=== PATIENT | female | born 1955 | race Caucasian/White ===

== ENCOUNTER → 2018-12-31 | Outpatient (CLI) | payer MEDICARE, BC | LOC: LL.CLIN 15:00 | PROVIDERS: ATTEND Nurse Practitioner | DX: J40 Bronchitis, not specified as acute or chronic (principal) | CPT/HCPCS: 99213 ==

== ENCOUNTER 2019-08-14 18:20 | Observation (INO) | payer MEDICARE, BC ==
[2019-08-14] MEDS ORDERED: GI Cocktail Oral Solution 30 ML PO ONE (18:27)
[2019-08-14] MEDS ORDERED: Nitroglycerin 0.4 MG Tab.SL SL PRN (18:39)
[2019-08-14 18:48] LABS: CHLORIDE,CL 102 mmol/L (98-107); SODIUM,NA 138 mmol/L (136-145)
[2019-08-14] MEDS ORDERED: Famotidine 20 MG/2 ML SDV IVPUSH ONE (18:55)
[2019-08-14] MEDS ORDERED: Pantoprazole 40 MG Vial IVPUSH ONE (18:56)
[2019-08-14] MEDS: Sodium Chloride 0.9% 10 ML Syringe FLUSH PRN ×2 (19:08→21:15)
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
[2019-08-14] MEDS: fentaNYL 100 MCG/2 ML SDV IVPUSH PRN ×2 (20:17→21:14)
[2019-08-14] MEDS ORDERED: Ondansetron 4 MG/2 ML SDV IVPUSH PRN (20:51)
[2019-08-14] MEDS ORDERED: Acetaminophen 325 MG Tab PO PRN (20:54)
[2019-08-14] MEDS ORDERED: GI Cocktail Oral Solution 30 ML PO PRN (20:55)
[2019-08-15] MEDS: Zolpidem 5 MG Tab PO PRN ×2 (01:52→22:02)
[2019-08-15] MEDS: Sucralfate 1 GM Tab PO SCH ×2 (07:29→16:59)
[2019-08-15] MEDS: oxyCODONE ER 10 MG TAB.ER PO SCH ×2 (07:32→17:02)
[2019-08-15] MEDS: Sertraline 50 MG Tab PO SCH (07:32)
[2019-08-15] MEDS: Hydroxychloroquine 200 MG Tab PO SCH (07:32)
[2019-08-15] MEDS ORDERED: Pantoprazole 40 MG Vial IVPUSH ONE ×2 (08:00→20:00)
[2019-08-15] MEDS ORDERED: Polyethylene Glycol 3350 Powder 238 GM Bot PO SCH (08:00)
[2019-08-15] MEDS ORDERED: Chlorthalidone 25 MG Tab PO ONE (08:09)
[2019-08-15] MEDS ORDERED: Famotidine 20 MG/2 ML SDV IVPUSH ONE ×2 (08:15→20:15)
[2019-08-15 08:31] LABS: CHLORIDE,CL 100 mmol/L (98-107); SODIUM,NA 138 mmol/L (136-145)
--- NOTE | 2019-08-15 09:22 | PCM.PN ---
- General Info Date of Service: 08/15/19 Admission Dx/Problem (Free Text): Epigastric/substernal pain Subjective Update: Improved from last night but still rates pain at 8. Normally has been running around a 5 when pain present over the past year Functional Status: Reports: Tolerating Diet, Ambulating, Urinating. Denies: New Symptoms - Review of Systems General: Reports: No Symptoms HEENT: Reports: Glasses Pulmonary: Reports: No Symptoms Cardiovascular: Reports: Other (epigastric/lower sternal chest pain). Denies: Palpitations, Dyspnea on Exertion, Orthopnea, Lightheadedness Gastrointestinal: Reports: Decreased Appetite, Nausea. Denies: Diarrhea, Difficulty Swallowing, Hematochezia, Melena, Vomiting Genitourinary: Reports: No Symptoms Musculoskeletal: Reports: Other (no acute changes from baseline) Skin: Reports: No Symptoms Neurological: Reports: No Symptoms Psychiatric: Reports: No Symptoms - Patient Data Vitals - Most Recent: Last Vital Signs Temp 37.1 C 08/15/19 07:45 Pulse 65 08/15/19 07:45 Resp 16 08/15/19 07:45 BP 153/72 H 08/15/19 07:45 Pulse Ox 98 08/15/19 07:45 Weight - Most Recent: 93.894 kg I&O - Last 24 Hours: Intake & Output 08/14/19 08/15/19 08/15/19 22:59 06:59 14:59 Intake Total 200 Balance 200 Lab Results Last 24 Hours: Laboratory Results - last 24 hr 08/14/19 08/14/19 08/14/19 Range/Units 18:18 18:18 18:18 WBC 16.5 H (4.0-10.2) K/uL RBC 4.92 (3.77-5.09) M/uL Hgb 14.7 (11.7-15.5) g/dL Hct 44.5 (34.0-46.0) % MCV 90.4 (84.0-98.0) fL MCH 29.9 (28.2-33.3) pg MCHC 33.0 (31.7-36.0) g/dL RDW 14.2 H (11.2-14.1) % Plt Count 261 (150-350) K/uL Neut % (Auto) 76.2 (45.0-80.0) % Lymph % (Auto) 17.5 (10.0-50.0) % [place] % (Auto) 6.0 (2.0-14.0) % Eos % (Auto) 0.1 (0.0-5.0) % Baso % (Auto) 0.2 (0.0-2.0) % Neut # (Auto) 12.57 H (1.40-7.00) K/uL Lymph # (Auto) 2.88 (0.50-3.50) K/uL [place] # (Auto) 0.98 (0.00-1.00) K/uL Eos # (Auto) 0.01 (0.00-0.50) K/uL Baso # (Auto) 0.03 (0.00-0.20) K/uL Add Manual Diff D-Dimer, Quantitative < 100 (0-400) ng/mL Sodium 138 (136-145) mmol/L Potassium 3.9 (3.5-5.1) mmol/L Chloride 102 (98-107) mmol/L Carbon Dioxide 25.3 (21.0-32.0) mmol/L BUN 19 H (7-18) mg/dL Creatinine 0.74 (0.51-1.17) mg/dL Est Cr Clr Drug Dosing 62.34 mL/min Estimated GFR (MDRD) > 60 mL/min Glucose 156 H (74-106) mg/dL Calcium 9.9 D (8.5-10.1) mg/dL Magnesium (1.8-2.4) mg/dL Total Bilirubin 0.5 (0.2-1.0) mg/dL AST 36 (15-37) U/L ALT 67 (12-78) U/L Alkaline Phosphatase 108 (46-116) IU/L Troponin I 0.000 (0.000-0.056) ng/mL NT-Pro-B Natriuret Pep 319 H (0-125) pg/mL Total Protein 8.3 H (6.4-8.2) g/dL Albumin 4.2 (3.4-5.0) g/dL Specimen Type Urine Color Urine Appearance Urine pH (5.0-9.0) Ur Specific [place] (1.005-1.030) Urine Protein (NEGATIVE) mg/dL Urine Glucose (UA) (NEGATIVE) mg/dL Urine Ketones (NEGATIVE) mg/dL Urine Occult Blood (NEGATIVE) Urine Nitrite (NEGATIVE) Urine Bilirubin (NEGATIVE) Urine Urobilinogen (0.2-1.0) E.U./dL Ur Leukocyte Esterase (NEGATIVE) Urine RBC /HPF Urine WBC /HPF Ur Epithelial Cells /LPF Urine Bacteria (NONE TO FEW) /HPF 08/14/19 08/14/19 08/15/19 Range/Units 18:18 18:18 07:20 WBC Cancelled (4.0-10.2) K/uL RBC Cancelled (3.77-5.09) M/uL Hgb Cancelled (11.7-15.5) g/dL Hct Cancelled (34.0-46.0) % MCV Cancelled (84.0-98.0) fL MCH Cancelled (28.2-33.3) pg MCHC Cancelled (31.7-36.0) g/dL RDW Cancelled (11.2-14.1) % Plt Count Cancelled (150-350) K/uL Neut % (Auto) Cancelled (45.0-80.0) % Lymph % (Auto) Cancelled (10.0-50.0) % [place] % (Auto) Cancelled (2.0-14.0) % Eos % (Auto) Cancelled (0.0-5.0) % Baso % (Auto) Cancelled (0.0-2.0) % Neut # (Auto) Cancelled (1.40-7.00) K/uL Lymph # (Auto) Cancelled (0.50-3.50) K/uL [place] # (Auto) Cancelled (0.00-1.00) K/uL Eos # (Auto) Cancelled (0.00-0.50) K/uL Baso # (Auto) Cancelled (0.00-0.20) K/uL Add Manual Diff Cancelled D-Dimer, Quantitative (0-400) ng/mL Sodium (136-145) mmol/L Potassium (3.5-5.1) mmol/L Chloride (98-107) mmol/L Carbon Dioxide (21.0-32.0) mmol/L BUN (7-18) mg/dL Creatinine (0.51-1.17) mg/dL Est Cr Clr Drug Dosing mL/min Estimated GFR (MDRD) mL/min Glucose (74-106) mg/dL Calcium (8.5-10.1) mg/dL Magnesium 1.9 (1.8-2.4) mg/dL Total Bilirubin (0.2-1.0) mg/dL AST (15-37) U/L ALT (12-78) U/L Alkaline Phosphatase (46-116) IU/L Troponin I (0.000-0.056) ng/mL NT-Pro-B Natriuret Pep (0-125) pg/mL Total Protein (6.4-8.2) g/dL Albumin (3.4-5.0) g/dL Specimen Type Urincc Urine Color Yellow Urine Appearance Clear Urine pH 6.0 (5.0-9.0) Ur Specific [place] 1.020 (1.005-1.030) Urine Protein Trace H (NEGATIVE) mg/dL Urine Glucose (UA) Negative (NEGATIVE) mg/dL Urine Ketones Negative (NEGATIVE) mg/dL Urine Occult Blood Negative (NEGATIVE) Urine Nitrite Negative (NEGATIVE) Urine Bilirubin Negative (NEGATIVE) Urine Urobilinogen 0.2 (0.2-1.0) E.U./dL Ur Leukocyte Esterase Trace H (NEGATIVE) Urine RBC Not seen /HPF Urine WBC 0-5 /HPF Ur Epithelial Cells Occasional /LPF Urine Bacteria Many H (NONE TO FEW) /HPF 08/15/19 08/15/19 Range/Units 08:06 08:06 WBC 9.4 (4.0-10.2) K/uL RBC 4.90 (3.77-5.09) M/uL Hgb 14.6 (11.7-15.5) g/dL Hct 44.4 (34.0-46.0) % MCV 90.6 (84.0-98.0) fL MCH 29.8 (28.2-33.3) pg MCHC 32.9 (31.7-36.0) g/dL RDW 14.0 (11.2-14.1) % Plt Count 213 (150-350) K/uL Neut % (Auto) 72.0 (45.0-80.0) % Lymph % (Auto) 20.6 (10.0-50.0) % [place] % (Auto) 7.2 (2.0-14.0) % Eos % (Auto) 0.0 (0.0-5.0) % Baso % (Auto) 0.2 (0.0-2.0) % Neut # (Auto) 6.75 (1.40-7.00) K/uL Lymph # (Auto) 1.93 (0.50-3.50) K/uL [place] # (Auto) 0.68 (0.00-1.00) K/uL Eos # (Auto) 0.00 (0.00-0.50) K/uL Baso # (Auto) 0.02 (0.00-0.20) K/uL Add Manual Diff D-Dimer, Quantitative (0-400) ng/mL Sodium 138 (136-145) mmol/L Potassium 4.1 (3.5-5.1) mmol/L Chloride 100 (98-107) mmol/L Carbon Dioxide 30.6 (21.0-32.0) mmol/L BUN 17 (7-18) mg/dL Creatinine 0.78 (0.51-1.17) mg/dL Est Cr Clr Drug Dosing 59.15 mL/min Estimated GFR (MDRD) > 60 mL/min Glucose 143 H (74-106) mg/dL Calcium 9.5 (8.5-10.1) mg/dL Magnesium (1.8-2.4) mg/dL Total Bilirubin 0.6 (0.2-1.0) mg/dL AST 34 (15-37) U/L ALT 65 (12-78) U/L Alkaline Phosphatase 90 (46-116) IU/L Troponin I 0.000 (0.000-0.056) ng/mL NT-Pro-B Natriuret Pep (0-125) pg/mL Total Protein 7.8 (6.4-8.2) g/dL Albumin 3.8 (3.4-5.0) g/dL Specimen Type Urine Color Urine Appearance Urine pH (5.0-9.0) Ur Specific [place] (1.005-1.030) Urine Protein (NEGATIVE) mg/dL Urine Glucose (UA) (NEGATIVE) mg/dL Urine Ketones (NEGATIVE) mg/dL Urine Occult Blood (NEGATIVE) Urine Nitrite (NEGATIVE) Urine Bilirubin (NEGATIVE) Urine Urobilinogen (0.2-1.0) E.U./dL Ur Leukocyte Esterase (NEGATIVE) Urine RBC /HPF Urine WBC /HPF Ur Epithelial Cells /LPF Urine Bacteria (NONE TO FEW) /HPF Med Orders - Current: Current Medications Acetaminophen (Tylenol) 650 mg PO Q4HR PRN PRN Reason: Pain Last Admin: 08/15/19 06:40 Dose: 650 mg Documented by: Al Hydroxide/Mg Hydroxide (Gi Cocktail) 30 ml PO Q6H PRN PRN Reason: Other Last Admin: 08/15/19 01:51 Dose: 30 ml Documented by: Gabapentin (Neurontin) 300 mg PO BEDTIME [facility] Hydroxychloroquine Sulfate (Plaquenil) 200 mg PO DAILY [facility] Last Admin: 08/15/19 07:32 Dose: 200 mg Documented by: Ketorolac Tromethamine (Toradol) 30 mg IVPUSH Q6H PRN PRN Reason: Pain Stop: 08/20/19 09:14 Nitroglycerin (Nitrostat) 0.4 mg SL Q5M PRN PRN Reason: Chest Pain Last Admin: 08/14/19 18:41 Dose: 0.4 mg Documented by: Ondansetron HCl (Zofran) 4 mg IVPUSH Q6H PRN PRN Reason: Nausea/Vomiting Oxycodone HCl (Oxycontin) 10 mg PO BID [facility] Last Admin: 08/15/19 07:32 Dose: 10 mg Documented by: Sertraline HCl (Zoloft) 50 mg PO DAILY [facility] Last Admin: 08/15/19 07:32 Dose: 50 mg Documented by: Sodium Chloride (Saline Flush) 10 ml FLUSH ASDIRECTED PRN PRN Reason: Keep Vein Open Last Admin: 08/14/19 21:15 Dose: 10 ml Documented by: Sucralfate (Carafate) 1 gm PO BIDAC [facility] Last Admin: 08/15/19 07:29 Dose: 1 gm Documented by: Zolpidem Tartrate (Ambien) 10 mg PO BEDTIME PRN PRN Reason: Insomnia Last Admin: 08/15/19 01:52 Dose: 10 mg Documented by: Discontinued Medications Al Hydroxide/Mg Hydroxide (Gi Cocktail) 30 ml PO ONETIME ONE Stop: 08/14/19 18:28 Last Admin: 08/14/19 18:34 Dose: 30 ml Documented by: Chlorthalidone (Chlorthalidone) 12.5 mg PO ONETIME ONE Stop: 08/15/19 08:10 Last Admin: 08/15/19 08:29 Dose: 12.5 mg Documented by: Famotidine (Pepcid) 40 mg IVPUSH ONETIME ONE Stop: 08/14/19 18:56 Last Admin: 08/14/19 18:59 Dose: 40 mg Documented by: Famotidine (Pepcid) 20 mg IVPUSH ONETIME ONE Stop: 08/15/19 08:16 Last Admin: 08/15/19 07:31 Dose: 20 mg Documented by: Fentanyl (Sublimaze) 50 mcg IVPUSH Q5M PRN PRN Reason: Pain Last Admin: 08/14/19 21:14 Dose: 50 mcg Documented by: Pantoprazole Sodium (Protonix Iv) 40 mg IVPUSH ONETIME ONE Stop: 08/14/19 18:57 Last Admin: 08/14/19 18:59 Dose: 40 mg Documented by: Pantoprazole Sodium (Protonix Iv) 40 mg IVPUSH ONETIME ONE Stop: 08/15/19 08:01 Last Admin: 08/15/19 07:30 Dose: 40 mg Documented by: Polyethylene Glycol (Miralax) 17 gm PO DAILY [facility] - Exam Quality Assessment: DVT Prophylaxis General: Alert, Oriented, Cooperative, No Acute Distress HEENT: Pupils Equal, Pupils Reactive, EOMI, Mucous Membr. Moist/[place] Neck: Supple Lungs: Clear to Auscultation, Normal Respiratory Effort Cardiovascular: Regular Rate, Regular Rhythm GI/Abdominal Exam: Normal Bowel Sounds, Soft, No Distention, Other (tender epigastric region) (Female) Exam: Deferred Back Exam: Normal Inspection Extremities: Normal Inspection, Normal Capillary Refill Skin: Warm, Dry Neurological: No New Focal Deficit Psy/Mental Status: Alert, Normal Affect, Normal Mood EKG INTERPRETATION EKG Date: 08/15/19 Time: 08:44 Rhythm: NSR Rate (Beats/Min): 66 Ina: Normal P-Wave: Present QRS: Normal ST-T: Normal QT: Normal Sepsis Event Note - Evaluation Sepsis Screening Result: No Definite Risk - Focused Exam Vital Signs: Vital Signs Temp Pulse Resp BP Pulse Ox 08/15/19 07:45 37.1 C 65 16 153/72 H 98 08/15/19 03:41 36.9 C 64 12 159/72 H 100 08/15/19 01:48 36.9 C 60 12 161/74 H 100 Date Exam was Performed: 08/15/19 Time Exam was Performed: 09:16 - Problem List & Annotations (1) Substernal chest pain SNOMED Code(s): 1323336 Code(s): R07.2 - PRECORDIAL PAIN Status: Acute Priority: High Current Visit: Yes Onset Date: 08/14/19 Annotation/Comment:: Negative initial cardiac workup in ER. Telemetry unremarkable. Repeat labs today unremarkable. Normal Troponin. Pain currently improved but patient still rates it at 8. Not much improvement with last GI cocktail. Toradol ordered. Suspect GI etiology at this time. (2) Epigastric abdominal pain SNOMED Code(s): 36404042 Code(s): R10.13 - EPIGASTRIC PAIN Status: Acute Priority: High Current Visit: Yes Onset Date: 08/14/19 Annotation/Comment:: Recenty diagnosed with gastric ulcers. Long history of GERD/multiple endoscopies. Suspect last night's pain exacerbation triggered by stress. Cardiac labs/EKG negative to this point. Will continue to observe/patient still having more pain that usual in epigastric area. Protonix and Pepcid given. Improved with GI cocktail. (3) GERD (gastroesophageal reflux disease) SNOMED Code(s): 260843411 Code(s): K21.9 - GASTRO-ESOPHAGEAL REFLUX DISEASE WITHOUT ESOPHAGITIS Status: Chronic Priority: Medium Current Visit: Yes Qualifiers: Esophagitis presence: esophagitis presence not specified Qualified Code(s): K21.9 - Gastro-esophageal reflux disease without esophagitis Annotation/Comment:: See above (4) HTN, Benign hypertension SNOMED Code(s): 39358124 Code(s): I10 - ESSENTIAL (PRIMARY) HYPERTENSION Status: Chronic Priority: Medium Current Visit: Yes Annotation/Comment:: Initial BP in ER elevated. Much improved but still elevated. Chlorthalidone initiated. Continue to observe. (5) Rheumatoid arthritis SNOMED Code(s): 67526639 Code(s): M06.9 - RHEUMATOID ARTHRITIS, UNSPECIFIED Status: Chronic Priority: Low Current Visit: No Qualifiers: Rheumatoid arthritis location: unspecified site Annotation/Comment:: under therapy (6) Gastric ulcer SNOMED Code(s): 997451080 Code(s): K25.9 - GASTRIC ULCER, UNSP ACUTE OR CHRONIC, W/O HEMOR OR PERF Status: Acute Priority: Medium Current Visit: Yes Qualifiers: Gastric ulcer chronicity: unspecified ulcer chronicity Annotation/Comment:: Recently diagnosed via EGD. - Problem List Review Problem List Initiated/Reviewed/Updated: Yes - My Orders Last 24 Hours: My Active Orders 08/14/19 Dinner Clear Liquid Diet [DIET] 08/14/19 18:28 EKG Documentation Completion [RC] ASDIRECTED CXR [Chest 2V] [CR] Stat 08/14/19 18:30 Cardiac Monitoring [RC] Q2HR 08/14/19 18:35 CXR [Chest 1V Frontal] [CR] Stat 08/14/19 18:39 Nitroglycerin [Nitrostat] 0.4 mg SL Q5M PRN 08/14/19 19:07 Sodium Chloride 0.9% [Saline Flush] 10 ml FLUSH ASDIRECTED PRN Saline Lock Insert [OM.PC] Routine 08/14/19 20:51 Patient Status [ADT] Routine May Shower [RC] ASDIRECTED Oxygen Therapy [RC] .PRN Up ad Lyssa [RC] ASDIRECTED Ondansetron [Zofran] 4 mg IVPUSH Q6H PRN Resuscitation Status Routine 08/14/19 20:53 Pulse Oximetry [RC] .PRN 08/14/19 20:54 Acetaminophen [Tylenol] 650 mg PO Q4HR PRN Zolpidem [Ambien] 10 mg PO BEDTIME PRN 08/14/19 20:55 GI Cocktail 30 ml PO Q6H PRN 08/14/19 20:59 EKG Documentation Completion [RC] 0700 08/15/19 00:45 Vital Signs [RC] Q4HWA 08/15/19 07:30 Sucralfate [Carafate] 1 gm PO BIDAC 08/15/19 08:00 Hydroxychloroquine [Plaquenil] 200 mg PO DAILY Sertraline [Zoloft] 50 mg PO DAILY oxyCODONE ER [OxyCONTIN] 10 mg PO BID 08/15/19 09:14 Ketorolac [Toradol] 30 mg IVPUSH Q6H PRN 08/15/19 20:00 Gabapentin [Neurontin] 300 mg PO BEDTIME - Assessment Assessment:: as above - Plan Plan:: as above. Additional day of observation planned. Anticipate discharge tomorrow morning if patient remains stable/pain improves.
[2019-08-15] MEDS: Ketorolac 30 MG/ML SDV IVPUSH PRN ×2 (10:21→22:02)
[2019-08-15] MEDS: Sodium Chloride 0.9% 10 ML Syringe FLUSH PRN ×3 (10:23→22:02)
[2019-08-15] MEDS ORDERED: Gabapentin 300 MG Cap PO SCH (20:00)
[2019-08-16 07:33] VITALS: BP 155/73; PULSE 54
[2019-08-16] MEDS: oxyCODONE ER 10 MG TAB.ER PO SCH (07:33)
[2019-08-16] MEDS: Sucralfate 1 GM Tab PO SCH (07:35)
[2019-08-16] MEDS: Hydroxychloroquine 200 MG Tab PO SCH (07:35)
[2019-08-16] MEDS: Sertraline 50 MG Tab PO SCH (07:35)
[2019-08-16] MEDS: Sodium Chloride 0.9% 10 ML Syringe FLUSH PRN (07:36)
[2019-08-16] MEDS ORDERED: Chlorthalidone 25 MG Tab PO ONE (08:00)
[2019-08-16] MEDS ORDERED: Famotidine 20 MG/2 ML SDV IVPUSH ONE (08:00)
[2019-08-16] MEDS ORDERED: Pantoprazole 40 MG Vial IVPUSH ONE (08:00)
[2019-08-16 08:01] LABS: CHLORIDE,CL 101 mmol/L (98-107); SODIUM,NA 138 mmol/L (136-145)
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
[2019-08-16 09:09] LABS: HEMOGLOBIN A1C 5.9 % (4.3-5.7)
== END 2019-08-16 10:40 | disposition home or self-care (01) ==
LOC: LL.ED 18:20 → LL.MS 19:27 → UNDOADMOB 19:27 → LL.MS 20:51 → UNDODISOB 08-16 10:40
PROVIDERS: ADMIT Emergency Medicine; ATTEND Emergency Medicine
DX: R07.2 Precordial pain (principal); K25.9 Gastric ulcer, unspecified as acute or chronic, without hemorrhage or perforation; K21.9 Gastro-esophageal reflux disease without esophagitis; I10 Essential (primary) hypertension; M06.9 Rheumatoid arthritis, unspecified; E11.9 Type 2 diabetes mellitus without complications; D86.9 Sarcoidosis, unspecified; M19.90 Unspecified osteoarthritis, unspecified site; E66.9 Obesity, unspecified; Z90.710 Acquired absence of both cervix and uterus; Z79.899 Other long term (current) drug therapy; Z79.891 Long term (current) use of opiate analgesic; Z88.0 Allergy status to penicillin; Z88.8 Allergy status to other drugs, medicaments and biological substances; Z88.1 Allergy status to other antibiotic agents; Z90.49 Acquired absence of other specified parts of digestive tract; Z90.89 Acquired absence of other organs; Z68.38 Body mass index [BMI] 38.0-38.9, adult; Z98.890 Other specified postprocedural states
CPT/HCPCS: 36415; 71045; 80053; 81001; 82150; 83036; 83690; 83735; 83880; 84484; 85025; 85379; 93005; 96374; 96375; 96376; 99285-25; A9270-GY; C9113; G0378; J1885; J3010; J3490

== ENCOUNTER 2020-05-29 10:14 | Emergency (ER) | payer MEDICARE, BC ==
[2020-05-29 10:21] VITALS: BP 144/81; PULSE 78
[2020-05-29 11:03] LABS: CHLORIDE,CL 106 mmol/L (98-107); SODIUM,NA 143 mmol/L (136-145)
[2020-05-29] MEDS ORDERED: GI Cocktail Oral Solution 30 ML PO ONE (11:12)
[2020-05-29] MEDS ORDERED: cefTRIAXone 1 GM Vial IM ONE (11:28)
--- NOTE | 2020-05-29 11:34 | EDM.PDOC ---
ED HPI GENERAL MEDICAL PROBLEM - General Chief Complaint: Abdominal Pain Stated Complaint: abdominal pain, diarrhea, nausea Time Seen by Provider: 05/29/20 10:30 Source of Information: Reports: Patient History Limitations: Reports: No Limitations - History of Present Illness INITIAL COMMENTS - FREE TEXT/NARRATIVE: Pt presents to ER with abdominal pain and diarrhea for 5 days Some nausea No emesis No fever Some chills Pain is across abdomen Has hx/o ulcers Onset: Gradual Duration: Day(s): Location: Reports: Abdomen Quality: Reports: Ache Severity: Moderate Associated Symptoms: Reports: Nausea/Vomiting, Other (Diarrhea) Upper Abdomen Pain Score (Numeric/FACES): 8 - Related Data Allergies Allergy/AdvReac Type Severity Reaction Status Date / Time albuterol Allergy Intermediate Tachycardia Verified 05/29/20 10:21 azithromycin [From Zithromax] Allergy Rash Verified 05/29/20 10:21 hydromorphone HCl Allergy Muscle Verified 05/29/20 10:21 [From Dilaudid] Weakness morphine Allergy Muscle Verified 05/29/20 10:21 Weakness naproxen [From Naprosyn] Allergy Abdominal Verified 05/29/20 10:21 Pain Penicillins Allergy Rash Verified 05/29/20 10:21 Home Meds: Home Meds Cyanocobalamin (Vitamin B-12) [Vitamin B-12] 2,000 mcg PO DAILY 06/16/13 [History] Gabapentin [Neurontin] 300 mg PO BEDTIME 06/16/13 [History] Sertraline HCl [Zoloft] 50 mg PO DAILY 06/16/13 [History] Zolpidem [Ambien] 10 mg PO BEDTIME PRN 06/16/13 [History] oxyCODONE HCl [Oxycodone HCl ER] 10 mg PO BID 10/30/15 [History] Acetaminophen [Non-Aspirin] 650 mg PO Q4HR PRN 08/14/19 [History] Ascorbic Acid [Vitamin C] 500 mg PO BID 08/14/19 [History] Hydroxychloroquine [Plaquenil] 200 mg PO Q4HR 08/14/19 [History] Multivitamin [Multi-Day Vitamins] 1 each PO DAILY 08/14/19 [History] Sucralfate [Carafate] 1 gm PO BIDAC 08/14/19 [History] Past Medical History HEENT History: Reports: Impaired Vision Gastrointestinal History: Reports: Diverticulosis, GERD 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 (See Below) Other HOUSING 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 STANDARD INSPECTOR History: hysterectomy Musculoskeletal History: Reports: Arthritis, RA Other Musculoskeletal History: RA, Endocrine/Metabolic History: Reports: Obesity/BMI 30+ Dermatologic History: Reports: Other (See Below) Other Dermatologic History: circular patches appear to palms itchy and red - Infectious Disease History Infectious Disease History: Reports: None - Past Surgical History HEENT Surgical History: Reports: Cataract Surgery GI Surgical History: Reports: Appendectomy, Cholecystectomy Social & Family History - Caffeine Use Caffeine Use: Reports: None ED ROS GENERAL - Review of Systems Review Of Systems: See Below Constitutional: Reports: Chills HEENT: Reports: No Symptoms Respiratory: Reports: No Symptoms Cardiovascular: Reports: No Symptoms GI/Abdominal: Reports: Abdominal Pain, Diarrhea, Nausea : Reports: No Symptoms Musculoskeletal: Reports: No Symptoms ED EXAM, GI/ABD - Physical Exam Exam: See Below Exam Limited By: No Limitations General Appearance: Alert, WD/WN, Mild Distress Throat/Mouth: Normal Oropharynx Neck: Supple Respiratory/Chest: Lungs Clear Cardiovascular: Regular Rate, Rhythm GI/Abdominal Exam: Soft, No Mass, Tender Back Exam: Normal Inspection Extremities: Normal Inspection Neurological: Alert, Oriented Course - Vital Signs Last Recorded V/S: Last Vital Signs Temp 97.1 F 05/29/20 10:15 Pulse 78 05/29/20 10:15 Resp 20 05/29/20 10:15 BP 144/81 H 05/29/20 10:15 Pulse Ox 100 05/29/20 10:15 - Orders/Labs/Meds Orders: Active Orders 24 hr Category Date Time Status cefTRIAXone [Rocephin] Med 05/29/20 11:28 Once 1 gm IM ONETIME ONE Labs: Laboratory Tests 05/29/20 05/29/20 05/29/20 Range/Units 10:30 10:30 11:05 WBC 5.6 (4.0-10.2) K/uL RBC 4.75 (3.77-5.09) M/uL Hgb 14.5 (11.7-15.5) g/dL Hct 43.1 (34.0-46.0) % MCV 90.7 (84.0-98.0) fL MCH 30.5 (28.2-33.3) pg MCHC 33.6 (31.7-36.0) g/dL RDW 13.4 (11.2-14.1) % Plt Count 204 (150-350) K/uL Neut % (Auto) 54.2 (45.0-80.0) % Lymph % (Auto) 31.8 (10.0-50.0) % [place] % (Auto) 10.1 (2.0-14.0) % Eos % (Auto) 3.4 (0.0-5.0) % Baso % (Auto) 0.5 (0.0-2.0) % Neut # (Auto) 3.01 (1.40-7.00) K/uL Lymph # (Auto) 1.77 (0.50-3.50) K/uL [place] # (Auto) 0.56 (0.00-1.00) K/uL Eos # (Auto) 0.19 (0.00-0.50) K/uL Baso # (Auto) 0.03 (0.00-0.20) K/uL Sodium 143 (136-145) mmol/L Potassium 3.0 L (3.5-5.1) mmol/L Chloride 106 (98-107) mmol/L Carbon Dioxide 26.3 (21.0-32.0) mmol/L BUN 20 H (7-18) mg/dL Creatinine 0.76 (0.51-1.17) mg/dL Est Cr Clr Drug Dosing 59.92 mL/min Estimated GFR (MDRD) > 60 mL/min Glucose 119 H (70-99) mg/dL Calcium 8.8 (8.5-10.1) mg/dL Total Bilirubin 0.6 (0.2-1.0) mg/dL AST 26 (15-37) U/L ALT 49 (12-78) U/L Alkaline Phosphatase 82 (46-116) IU/L Total Protein 7.3 (6.4-8.2) g/dL Albumin 3.8 (3.4-5.0) g/dL Specimen Type Urinvoid Urine Color Yellow Urine Appearance Slightly cloudy Urine pH 6.0 (5.0-9.0) Ur Specific [place] >= 1.030 (1.005-1.030) Urine Protein 30 H (NEGATIVE) mg/dL Urine Glucose (UA) Negative (NEGATIVE) mg/dL Urine Ketones Negative (NEGATIVE) mg/dL Urine Occult Blood Trace-intact H (NEGATIVE) Urine Nitrite Positive H (NEGATIVE) Urine Bilirubin Negative (NEGATIVE) Urine Urobilinogen 0.2 (0.2-1.0) E.U./dL Ur Leukocyte Esterase Small H (NEGATIVE) Urine RBC 0-5 /HPF Urine WBC 20-30 H /HPF Ur Epithelial Cells Moderate H /LPF Amorphous Sediment Few (0/HPF) /HPF Urine Bacteria Many H (NONE TO FEW) /HPF Urine Mucus Few H (NEGATIVE) /LPF Meds: Medications Discontinued Medications Generic Name Dose Route Start Last Admin Trade Name Freq PRN Reason Stop Dose Admin Al Hydroxide/Mg Hydroxide 30 ml 05/29/20 11:12 05/29/20 11:15 Gi Cocktail Oral Solution 30 Ml PO 05/29/20 11:13 30 ml ONETIME ONE Administration - Re-Assessments/Exams Free Text/Narrative Re-Assessment/Exam: 05/29/20 11:32 See lab Pt with low K and UTI Pt given oral K in ER and Rocephin 1 gm IM in ER Will be started on Cipro BID and await culture Pt to follow up in clinic to recheck K Departure - Departure Time of Disposition: 11:45 Disposition: Home, Self-Care 01 Clinical Impression: Hypokalemia UTI (urinary tract infection) Qualifiers: Urinary tract infection type: site unspecified Hematuria presence: without hematuria Qualified Code(s): N39.0 - Urinary tract infection, site not specified - Discharge Information *PRESCRIPTION DRUG MONITORING PROGRAM REVIEWED*: Not Applicable *COPY OF PRESCRIPTION DRUG MONITORING REPORT IN PATIENT AP: Not Applicable Instructions: Hypokalemia, Urinary Tract Infection, Adult Additional Instructions: RX Cipro 500 mg BID for 7 days Follow up in clinic Sepsis Event Note (ED) - Evaluation Sepsis Screening Result: No Definite Risk - Focused Exam Vital Signs: Vital Signs Temp Pulse Resp BP Pulse Ox 05/29/20 10:15 97.1 F 78 20 144/81 H 100 - My Orders Last 24 Hours: My Active Orders 05/29/20 11:28 cefTRIAXone [Rocephin] 1 gm IM ONETIME ONE - Assessment/Plan Last 24 Hours: My Active Orders 05/29/20 11:28 cefTRIAXone [Rocephin] 1 gm IM ONETIME ONE
[2020-05-29] MEDS ORDERED: Potassium Chloride 10 MEQ Tab.ER PO ONE (11:36)
== END 2020-05-29 11:44 | disposition home or self-care (01) ==
LOC: LL.ED 10:14
DX: N39.0 Urinary tract infection, site not specified (principal); E87.6 Hypokalemia; E66.9 Obesity, unspecified; K21.9 Gastro-esophageal reflux disease without esophagitis; Z88.8 Allergy status to other drugs, medicaments and biological substances; Z88.1 Allergy status to other antibiotic agents; Z88.5 Allergy status to narcotic agent; Z88.0 Allergy status to penicillin; Z79.899 Other long term (current) drug therapy; Z68.37 Body mass index [BMI] 37.0-37.9, adult
CPT/HCPCS: 36415; 80053; 81001; 85025; 87086; 87088; 87186; 96372; 99283; 99284; A9270-GY; J0696

== ENCOUNTER 2023-06-10 15:02 | Emergency (ER) | payer OTHER, MEDICARE ==
[2023-06-10 15:23] LABS: BASOPHILS ABSOLUTE AUTO 0.02 K/uL (0.00-0.20); BASOPHILS PERCENT AUTO 0.3 % (0.0-2.0); EOSINOPHILS ABSOLUTE AUTO 0.18 K/uL (0.00-0.50); EOSINOPHILS PERCENT AUTO 2.7 % (0.0-5.0); HEMATOCRIT 39.2 % (34.0-46.0); HEMOGLOBIN 12.8 g/dL (11.7-15.5); LYMPHOCYTES ABSOLUTE AUTO 2.09 K/uL (0.50-3.50); LYMPHOCYTES PERCENT AUTO 31.8 % (10.0-50.0); MEAN CORPUSCULAR HEMOGLOBIN 30.2 pg (28.2-33.3); MEAN CORPUSCULAR HGB CONC 32.7 g/dL (31.7-36.0); MEAN CORPUSCULAR VOLUME 92.5 fL (84.0-98.0); MONOCYTES ABSOLUTE AUTO 0.65 K/uL (0.00-1.00); MONOCYTES PERCENT AUTO 9.9 % (2.0-14.0); NEUTROPHILS ABSOLUTE AUTO 3.64 K/uL (1.40-7.00); NEUTROPHILS PERCENT AUTO 55.3 % (45.0-80.0); PLATELET COUNT,PLT 212 K/uL (150-350); RED BLOOD CELL COUNT 4.24 M/uL (3.77-5.09); RED CELL DISTRIBUTION WIDTH 13.2 % (11.2-14.1); WHITE BLOOD CELL COUNT,WBC 6.6 K/uL (4.0-10.2)
[2023-06-10] MEDS: Acetaminophen 500 MG Tab PO ONE (15:30)
[2023-06-10] MEDS: traMADol 50 MG Tab PO ONE (15:31)
[2023-06-10 15:42] LABS: ALBUMIN 3.7 g/dL (3.4-5.0); ANION GAP 8.9 meq/L (7-15); BILIRUBIN TOTAL 0.6 mg/dL (0.2-1.0); CALCIUM 8.8 mg/dL (8.5-10.1); CARBON DIOXIDE,CO2 28.1 mmol/L (21.0-32.0); CREATININE 0.87 mg/dL (0.51-1.17); EST CRCL DRUG DOSING (CG) 50.31 mL/min; POTASSIUM,K 4.3 mmol/L (3.5-5.1)
[2023-06-10 18:11] VITALS: BP 156/80; PULSE 68
== END 2023-06-10 17:30 | disposition home or self-care (01) ==
LOC: LL.ED 15:02
DX: S82.302A Unspecified fracture of lower end of left tibia, initial encounter for closed fracture (principal); K21.9 Gastro-esophageal reflux disease without esophagitis; E66.9 Obesity, unspecified; Z88.0 Allergy status to penicillin; Z88.1 Allergy status to other antibiotic agents; Z88.5 Allergy status to narcotic agent; Z88.8 Allergy status to other drugs, medicaments and biological substances; Z90.49 Acquired absence of other specified parts of digestive tract; Z68.38 Body mass index [BMI] 38.0-38.9, adult; W19.XXXA Unspecified fall, initial encounter
CPT/HCPCS: 29515; 36415; 73610-LT; 73700-LT; 80053; 85025; 99283; 99284-25; A9270-GY

== ENCOUNTER 2023-10-02 19:11 | Emergency (ER) | payer MEDICARE ==
[2023-10-02] MEDS: oxyCODONE 5 MG Tab PO ONE (20:08)
[2023-10-02] MEDS: Take Home: oxyCODONE HCl 5 MG Tab, 5 Tab Pack PO ONE (21:07)
[2023-10-02 22:10] VITALS: BP 164/97; PULSE 73
== END 2023-10-02 21:20 | disposition home or self-care (01) ==
LOC: LL.ED 19:11
DX: M25.561 Pain in right knee (principal); E66.9 Obesity, unspecified; Z90.49 Acquired absence of other specified parts of digestive tract; Z79.899 Other long term (current) drug therapy; Z88.0 Allergy status to penicillin; Z88.8 Allergy status to other drugs, medicaments and biological substances; Z88.5 Allergy status to narcotic agent; Z88.1 Allergy status to other antibiotic agents
CPT/HCPCS: 99283; A9270-GY